=== PATIENT | male | born 1960 | race African-American/Black ===

== ENCOUNTER 2024-09-28 10:49 | Emergency (ER) | payer OTHER ==
[~2024-09-28] VITALS: Ht 157.5 cm; Wt 82.5 kg
[2024-09-28 10:57] VITALS: BP 174/92; PULSE 90; RESP 16; TEMP 98; O2SAT 99
[2024-09-28 11:28] LABS: BASOPHILS % 0.7 % (0.0-2.0); EOSINOPHILS % 1.6 % (0.0-5.0); HEMATOCRIT. 46.3 % (42.0-52.0); HEMOGLOBIN. 15.2 g/dL (14.0-18.0); LYMPHOCYTES % 23.2 % (20.0-50.0); MEAN CORPUSCULAR HEMOGLOBIN 30.9 pg (28.0-32.0); MEAN CORPUSCULAR HGB CONC 32.8 g/dL (31.0-37.0); MEAN CORPUSCULAR VOLUME 94.1 fL (80.0-94.0); MEAN PLATELET VOLUME 9.5 fl (7.4-10.4); MONOCYTES % 3.4 % (2.0-8.0); NEUTROPHILS % 71.1 % (40.0-76.0); PLATELET 227 x1000/uL (130-400); RED BLOOD CELL COUNT 4.92 mill/uL (4.7-6.1); RED CELL DISTRIBUTION WIDTH 13.2 % (11.6-14.6); WHITE BLOOD COUNT 8.4 x1000/uL (4.5-11.0)
[2024-09-28 11:34] LABS: CHLORIDE 105 mEq/L (98-107); POTASSIUM 4.1 mEq/L (3.5-5.1); SODIUM 137 mEq/L (136-145)
[2024-09-28 11:35] LABS: CARBON DIOXIDE 27 mEq/L (21-32)
[2024-09-28 11:40] LABS: CREATININE 1.3 mg/dL (0.6-1.3); GLUCOSE 146 mg/dL (70-105); UREA NITROGEN BLOOD 12 mg/dL (9-23)
[2024-09-28 13:27] LABS: TROPONIN I HIGH SENSITIVITY 87 ng/L (3.0-53)
[2024-09-28 15:43] LABS: TROPONIN I HIGH SENSITIVITY 90 ng/L (3.0-53)
== END 2024-09-28 16:01 | disposition home or self-care (01) ==
LOC: ER 10:57
DX: R55 Syncope and collapse (principal); I10 Essential (primary) hypertension; Z90.49 Acquired absence of other specified parts of digestive tract
CPT/HCPCS: 36415; 80048; 83880; 84484; 85025; 93005; 99284